=== PATIENT | male | born 1980 | race Two or more races ===

== ENCOUNTER → 2016-12-26 | Outpatient (CLI) | payer MEDICAID | LOC: BRMIMAGING 12:41 | PROVIDERS: ATTEND Internal Medicine | DX: N50.89 Other specified disorders of the male genital organs (principal) | CPT/HCPCS: 76870-PO ==

== ENCOUNTER → 2017-01-23 | Outpatient (CLI) | payer MEDICAID | LOC: FIMAGING 09:44 | PROVIDERS: ATTEND Internal Medicine | DX: S22.41XD Multiple fractures of ribs, right side, subsequent encounter for fracture with routine healing (principal) ==